=== PATIENT | male | born 1980 | race Caucasian/White ===

== ENCOUNTER 2016-08-05 20:15 | Emergency (ER) | payer OTHER, SELFPAY ==
[2016-08-05 20:31] VITALS: O2SAT 98
[2016-08-05] MEDS ORDERED: Robitussin AC Syrup Unit Dose Cup PO PRN (21:02)
[2016-08-05] MEDS ORDERED: Zithromax 250 MG TABLET PO ONE (21:02)
[2016-08-05] MEDS ORDERED: Naprosyn 500 MG PO ONE (21:02)
[2016-08-05] MEDS ORDERED: Zithromax 250 MG TABLET ONE (21:06)
[2016-08-05] MEDS ORDERED: Robitussin AC Syrup Unit Dose Cup ONE (21:06)
--- NOTE | 2016-08-05 21:08 | ERPHSYRPT ---
- History of Present Illness Time Seen by Provider: 08/05/16 20:57 Source: patient Exam Limitations: no limitations Patient Subjective Stated Complaint: pt states hes had a cold for approx 3 weeks and has gotten much worse over the past few days Triage Nursing Assessment: pt alert and oreinted. answers questions approp. skin pink warm and dry. pt ambulatory with steady gait noted. respirations nonlabored with lung clear on lt and rhonchi noted on rt. occasional cough noted. Physician History: FOR THE PAST 3 WEEKS PT HAS HAD A COUGH SOMETIMES PRODUCTIVE OF GREEN PHLEGM, SHORTNESS OF AIR AND HEAD CONGESTION; DENIES FEVER, CHEST PAIN, VOMITING. Allergies/Adverse Reactions: No Known Drug Allergies Allergy (Verified 08/05/16 20:31) Hx Tetanus, Diphtheria Vaccination/Date Given: Yes Hx Influenza Vaccination/Date Given: No Hx Pneumococcal Vaccination/Date Given: No Immunizations Up to Date: Yes - Review of Systems Constitutional: No Fever Ears, Nose, & Throat: Other (HEAD CONGESTION) Respiratory: Cough, Dyspnea Cardiac: No Chest Pain Abdominal/Gastrointestinal: No Vomiting All Other Systems: Reviewed and Negative - Past Medical History Pertinent Past Medical History: Yes Respiratory History: Bronchitis - Past Surgical History Past Surgical History: No - Social History Smoking Status: Current every day smoker How long have you smoked: 20 Exposure to second hand smoke: Yes Drug Use: none Patient Lives Alone: No - Nursing Vital Signs Nursing Vital Signs: Initial Vital Signs Temperature 97.5 F Temperature Source Oral Pulse Rate 83 Respiratory Rate 16 Blood Pressure [Right Arm] 134/78 Pain Intensity 7 - Physical Exam General Appearance: alert Eye Exam: PERRL/EOMI, eyes nml inspection Ears, Nose, Throat Exam: TMs normal, moist mucous membranes, pharyngeal erythema Neck Exam: normal inspection Respiratory Exam: other (BRONCHIAL B.S. OVER ALL FELDMAN) Cardiovascular Exam: normal heart sounds Gastrointestinal/Abdomen Exam: soft, normal bowel sounds Back Exam: normal range of motion Extremity Exam: normal inspection, No pedal edema Neurologic Exam: alert, cooperative Skin Exam: warm, dry SpO2 Interpretation: normal SpO2: 98 Oxygen Delivery: Room Air - Course Nursing assessment & vital signs reviewed: Yes - Departure Time of Disposition: 21:09 Departure Disposition: Home Clinical Impression: BRONCHITIS, PHARYNGITIS Condition: Fair Critical Care Time: No Instructions: Bronchitis Additional Instructions: FOLLOW UP WITH PRIVATE DOCTOR TOMORROW. Prescriptions: Guaifenesin/Codeine Phosphate [Robitussin AC Syrup] 10 ml PO Q4H PRN PRN #120 ml PRN Reason: Cough Naproxen [Naprosyn] 500 mg PO Q12H PRN PRN #20 tablet PRN Reason: Pain Azithromycin 250 mg [Zithromax 250 MG TABLET] 250 mg PO ZPACK #6 tablet
[2016-08-05 21:25] VITALS: BP 123/70; PULSE 76
== END 2016-08-05 21:25 | disposition home or self-care (01) ==
LOC: ED 20:15
DX: J40 Bronchitis, not specified as acute or chronic (principal); J02.9 Acute pharyngitis, unspecified; R05 Cough; R09.81 Nasal congestion
CPT/HCPCS: 99283

== ENCOUNTER 2018-09-02 01:17 | Emergency (ER) | payer OTHER, SELFPAY ==
--- NOTE | 2018-09-02 01:42 | ERPHSYRPT ---
- History of Present Illness Time Seen by Provider: 09/02/18 01:42 Source: patient Exam Limitations: no limitations Patient Subjective Stated Complaint: pt states he has had a cough and body aches for 3 day. Triage Nursing Assessment: pt alert and oriented, answers questions approp. pt ambulatory with steady gait noted. respirations nonlabored with exp wheezes noted throughout. skin warm and dry. Physician History: The patient is a 38-year-old male who lives with a couple in his house. The patient began to get a cough and severe muscle aches and a spine ache about 2-3 days ago. He did not get an influenza vaccination this year. His friend is also ill and he did not get an influenza vaccination this year. The woman who is with him is not ill and she did get an influenza vaccination. This patient vomited a the first day but has not vomited since. He says this is worse in the bronchitis he usually gets. He declines a chest x-ray and would like treatment for influenza. His past medical history is unremarkable. Timing/Duration: day(s) (2), constant, sudden Cough Quality/Degree: moderate, dry cough Possible Cause: no prior episodes Modifying Factors: Improves With: coughing Associated Symptoms: fever, cough, muscle aches Allergies/Adverse Reactions: No Known Drug Allergies Allergy (Verified 09/02/18 01:35) Hx Tetanus, Diphtheria Vaccination/Date Given: Yes Hx Influenza Vaccination/Date Given: No Hx Pneumococcal Vaccination/Date Given: No Immunizations Up to Date: Yes - Review of Systems Constitutional: Chills Eyes: No Symptoms Ears, Nose, & Throat: No Symptoms Respiratory: Cough Cardiac: No Chest Pain, No Edema, No Syncope Abdominal/Gastrointestinal: Vomiting Genitourinary Symptoms: No Dysuria Musculoskeletal: No Back Pain, No Neck Pain Skin: No Rash Neurological: No Dizziness, No Focal Weakness, No Sensory Changes Psychological: No Symptoms Endocrine: No Symptoms Hematologic/Lymphatic: No Symptoms Immunological/Allergic: No Symptoms All Other Systems: Reviewed and Negative - Past Medical History Pertinent Past Medical History: Yes Respiratory History: Bronchitis Psycho-Social History: Depression - Past Surgical History Past Surgical History: No - Social History Smoking Status: Current every day smoker How long have you smoked: 20 Exposure to second hand smoke: Yes Drug Use: none Patient Lives Alone: No - Nursing Vital Signs Nursing Vital Signs: Initial Vital Signs Temperature 99.2 F 09/02/18 01:24 Pulse Rate 91 H 09/02/18 01:24 Respiratory Rate 18 09/02/18 01:24 Blood Pressure 129/81 09/02/18 01:24 O2 Sat by Pulse Oximetry 99 09/02/18 01:24 Pain Scale Pain Intensity 6 - Physical Exam General Appearance: moderate distress Eye Exam: PERRL/EOMI, eyes nml inspection Ears, Nose, Throat Exam: normal ENT inspection, TMs normal, moist mucous membranes, pharyngeal erythema Neck Exam: normal inspection, non-tender, supple, full range of motion Respiratory Exam: normal breath sounds, lungs clear, No respiratory distress Cardiovascular Exam: regular rate/rhythm, normal heart sounds Gastrointestinal/Abdomen Exam: soft, No tenderness Rectal Exam: not done Back Exam: normal inspection, No CVA tenderness, No vertebral tenderness Extremity Exam: normal inspection, normal range of motion Neurologic Exam: alert, oriented x 3, cooperative, normal mood/affect, sensation nml, No motor deficits Skin Exam: normal color, warm, dry, No rash Lymphatic Exam: No adenopathy SpO2 Interpretation: normal SpO2: 100 O2 Delivery: Room Air - Progress Progress: improved Progress Note: 09/02/18 01:56 Pt declines CXR. Given toradol 60 mg IM and tamiflu 75 mg po. Counseled pt/family regarding: diagnosis - Departure Time of Disposition: 01:57 Departure Disposition: Home Clinical Impression: Influenza Condition: Stable Critical Care Time: No Referrals: DOCTOR,NO FAMILY [Primary Care Provider] - Additional Instructions: Clinically you have an influenza infection. You were given Toradol 60 mg by IM and Tamiflu 75 mg orally in the ER. Continue with Tamiflu 75 mg 2 times a day for total of 5 days. Take Tylenol and ibuprofen as needed. Stay well- hydrated. Follow-up with your primary medical doctor as needed. Prescriptions: Oseltamivir 75 mg [Tamiflu 75MG Capsule] 75 mg PO BID #9 cap
[2018-09-02] MEDS ORDERED: Tamiflu 75MG Capsule PO ONE ×2 (01:57→02:08)
[2018-09-02] MEDS ORDERED: TORAdol 30 mg Injection IM ONE (01:57)
[2018-09-02] MEDS ORDERED: TORAdol 30 mg Injection ONE (02:08)
[2018-09-02 02:21] VITALS: BP 109/75; PULSE 84; O2SAT 98
== END 2018-09-02 02:28 | disposition home or self-care (01) ==
LOC: ED 01:17
DX: J10.1 Influenza due to other identified influenza virus with other respiratory manifestations (principal)
CPT/HCPCS: 96372; 99283; J1885; A9270-GY

== ENCOUNTER 2020-06-28 16:19 | Emergency (ER) | payer OTHER ==
[2020-06-28 16:32] VITALS: BP 142/86; PULSE 81; O2SAT 100
--- NOTE | 2020-06-28 16:49 | ERPHSYRPT ---
- History of Present Illness Time Seen by Provider: 06/28/20 16:49 Source: patient Exam Limitations: no limitations Patient Subjective Stated Complaint: infection in tooth Triage Nursing Assessment: pt to ED c/o toothache and possible infection. L cheek and gums swollen. teeth appear unhealthy with decay noted. missing teeth in L back lower. states that is where pain originates. sees [facility] in [place] and was supposed to have a tooth pulled and another repaired 6 months ago but has not been able to be seen d/t clinic not seeing pts r/t COVID. rates 10/10 pain x 3 days. unable to tolerate solid foods Physician History: This is a 40-year-old white male who has chronic poor dentition and dental decay who presents with left lower molar pain. Is been present for several days and worsening. Patient has been unable to care for his teeth in the free clinic in [facility] secondary to Covid 19 restrictions. Patient denies any drug allergies. Patient states that the last medicine he used for pain control was 6 or 7 hours ago which was plain Tylenol. Timing/Duration: gradual onset, persistent, weeks (Chronic) Severity: moderate Prearrival Treatment: over the counter meds Associated Symptoms: tooth pain Allergies/Adverse Reactions: No Known Drug Allergies Allergy (Verified 06/28/20 16:32) Hx Tetanus, Diphtheria Vaccination/Date Given: Yes Hx Influenza Vaccination/Date Given: Yes Hx Pneumococcal Vaccination/Date Given: No Immunizations Up to Date: Yes Travel Risk - International Travel Have you traveled outside of the country in past 3 weeks: No - Coronavirus Screening Are you exhibiting any of the following symptoms?: No Close contact with a COVID-19 positive Pt in past 14-21 Days: No - Review of Systems Constitutional: No Symptoms Eyes: No Symptoms Ears, Nose, & Throat: No Symptoms, Other (Pain) Respiratory: No Symptoms Cardiac: No Symptoms Abdominal/Gastrointestinal: No Symptoms Genitourinary Symptoms: No Symptoms Musculoskeletal: No Symptoms Skin: No Symptoms Neurological: No Symptoms Psychological: No Symptoms Endocrine: No Symptoms Hematologic/Lymphatic: No Symptoms Immunological/Allergic: No Symptoms All Other Systems: Reviewed and Negative - Past Medical History Pertinent Past Medical History: Yes Neurological History: No Pertinent History ENT History: No Pertinent History Cardiac History: No Pertinent History Respiratory History: Bronchitis Endocrine Medical History: No Pertinent History Musculoskeletal History: No Pertinent History GI Medical History: No Pertinent History History: No Pertinent History Psycho-Social History: Depression - Past Surgical History Past Surgical History: No Neuro Surgical History: No Pertinent History Cardiac: No Pertinent History Respiratory: No Pertinent History Gastrointestinal: No Pertinent History Genitourinary: No Pertinent History Musculoskeletal: No Pertinent History Male Surgical History: No Pertinent History - Social History Smoking Status: Current every day smoker How long have you smoked: 20 Exposure to second hand smoke: Yes Drug Use: marijuana Patient Lives Alone: No - Nursing Vital Signs Nursing Vital Signs: Initial Vital Signs Temperature 98.1 F 06/28/20 16:22 Pulse Rate 81 06/28/20 16:22 Respiratory Rate 18 06/28/20 16:22 Blood Pressure 142/86 06/28/20 16:22 O2 Sat by Pulse Oximetry 100 06/28/20 16:22 Pain Scale Pain Intensity 10 - Physical Exam General Appearance: no apparent distress, alert, anxiety Eye Exam: bilateral eye: normal inspection, PERRL, EOMI Ear Exam: bilateral ear: auricle normal Nasal Exam: normal inspection Throat Exam: pharynx normal, dental tenderness (Underlies poor dentition with gingivitis and multiple fractured teeth.) Neck Exam: normal inspection, non-tender, supple, full range of motion Cardiovascular/Respiratory Exam: chest non-tender, no respiratory distress Abdominal Exam: non-tender Neurologic Exam: alert, oriented x 3, cooperative, 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, normal mood/affect, nml cerebellar function, nml station & gait, sensation nml Skin Exam: normal color, warm, dry SpO2 Interpretation: normal SpO2: 100 O2 Delivery: Room Air - Course Nursing assessment & vital signs reviewed: Yes Ordered Tests: Medication Summary Discontinued Medications Generic Name Dose Route Start Last Admin Trade Name Freq PRN Reason Stop Dose Admin Amoxicillin 500 mg 06/28/20 17:34 Amoxil 500 Mg PO 06/28/20 17:35 STAT ONE Ibuprofen 600 mg 06/28/20 17:34 Motrin 600 Mg PO 06/28/20 17:35 STAT ONE Oxycodone/Acetaminophen 1 tab 06/28/20 17:34 Oxycodone-Acetaminophen 10-325 PO 06/28/20 17:35 STAT STA - Progress Progress: unchanged Counseled pt/family regarding: diagnosis, need for follow-up - Departure Departure Disposition: Home Clinical Impression: Chronic dental pain Condition: Stable Critical Care Time: No Referrals: DOCTOR,NO FAMILY [Primary Care Provider] - Additional Instructions: Use Tylenol and ibuprofen for pain control. Take your antibiotics as prescribed. Follow-up with a dentist for definitive care. May add [id number] topical anesthetic agents to aid in pain control. Prescriptions: Amoxicillin 500 mg Cap [Amoxil 500 mg] 500 mg PO TID #30 capsule
[2020-06-28] MEDS ORDERED: AMOXIL 500 MG PO ONE (17:34)
[2020-06-28] MEDS ORDERED: OXYCODONE-ACETAMINOPHEN 10-325 PO STA (17:34)
[2020-06-28] MEDS ORDERED: MOTRIN 600 MG PO ONE (17:34)
[2020-06-28] MEDS ORDERED: MOTRIN 600 MG ONE (17:48)
[2020-06-28] MEDS ORDERED: AMOXIL 500 MG ONE (17:49)
[2020-06-28] MEDS ORDERED: OXYCODONE-ACETAMINOPHEN 10-325 ONE (17:49)
== END 2020-06-28 18:11 | disposition home or self-care (01) ==
LOC: ED 16:19
DX: K08.89 Other specified disorders of teeth and supporting structures (principal)
CPT/HCPCS: 99283; A9270-GY

== ENCOUNTER 2021-05-22 05:45 | Emergency (ER) | payer OTHER ==
[2021-05-22] MEDS ORDERED: Sodium Chloride 0.9% 1000 ML 1,000 ML IV STA ×2 (06:20→09:11)
[2021-05-22] MEDS ORDERED: Zofran 4 MG/2 ML VIAL IV PRN (06:20)
[2021-05-22] MEDS ORDERED: Sodium Chloride 0.9% 1000 ML 1,000 ML ONE ×2 (06:22→09:03)
[2021-05-22] MEDS ORDERED: Zofran 4 MG/2 ML VIAL ONE (06:22)
[2021-05-22 06:44] LABS: Absolute Neutrophil Ct (ANC) 7.49 (1.4-6.9); BASOPHIL % 0.4 % (0.0-0.4); Basophil (Absolute #) 0.04 (0-0.4); Eosinophil % 0.1 % (0.00-5.0); Eosinophil (Absolute #) 0.01 (0-0.5); Hematocrit 44.9 % (42-50); Hemoglobin 14.9 gm/dl (12.5-18.0); Lymphocyte (Absolute #) 1.77 (1.0-4.6); Lymphocytes % 17.3 % (24.0-44.0); Mean Cell Volume 90.7 fl (78-100); Mean Corpuscular Hemoglobin 30.1 pg (26-32); Mean Corpuscular Hgb Concent. 33.2 g/dl (32-36); Mean Platelet Volume 10.2 fl (7.5-11.0); Monocyte (Absolute #) 0.94 (0.0-1.3); Monocytes % 9.2 % (0.0-12.0); Platelet Count 330 K/mm3 (150-450); Red Blood Count 4.95 M/mm3 (4.1-5.6); Red Cell Distribution Width 14.4 % (11.5-14.0); White Blood Count 10.3 K/mm3 (4.0-10.5)
[2021-05-22 06:54] LABS: ALBUMIN 4.9 g/dL (3.5-5.0); ALKALINE PHOSPHATASE 40 U/L (38-126); ANION GAP 18.3 MEQ/L (5-15); BLOOD UREA NITROGEN 14 mg/dL (9-20); CHLORIDE 107 mmol/L (98-107); Calcium 9.9 mg/dL (8.4-10.2); Carbon Dioxide 23 mmol/L (22-30); Creatinine 1 1.14 mg/dL (0.66-1.25); EST GLOMERULAR FILTRATION RATE > 60.0 ML/MIN; Glucose 99 mg/dL (74-106); LIPASE 78 U/L (23-300); Potassium 4.1 mmol/L (3.5-5.1); SGOT/AST 24 U/L (17-59); SGPT/ALT 20 U/L (0-50); SODIUM 143 mmol/L (137-145); Total Protein 7.8 g/dL (6.3-8.2)
[2021-05-22] MEDS ORDERED: PROTONIX 40 MG IV IV ONE ×2 (06:55→06:58)
[2021-05-22 06:56] LABS: Appearance CLEAR (CLEAR); Bilirubin NEGATIVE (NEGATIVE); Blood NEGATIVE Ery/ul (0-5); Glucose NEGATIVE (NEGATIVE); Ketones NEGATIVE (NEGATIVE); Leukocyte Esterase NEGATIVE (NEGATIVE); Mucus SLIGHT /HPF (NEGATIVE); Nitrite NEGATIVE (NEGATIVE); Protein,Urine Dip NEGATIVE (Negative); Specific Gravity 1.014 (1.005-1.025); Urobilinogen NEGATIVE mg/dL (0-1); WBC 0-2 /HPF (0-5)
--- NOTE | 2021-05-22 07:01 | ERPHSYRPT ---
- History of Present Illness Historian: patient Exam Limitations: no limitations Patient Subjective Stated Complaint: pt states "I vomited like 8 times tonight but I thought it may be from the deer I ate." Triage Nursing Assessment: pt ambulated into the er; pt is axo x4; c/o vomiting; pt states 2/10 pain to abd; pt states that he had some deer meat last night and thinks it was bad; pt states that he had 10 episodes of vomiting; pt states that he had 1 episode of diarrhea yesterday prior to vomiting; pt states pain in abd is sharp but has subsided; abd is flat, nontender; hyperactive bowel sounds in all quads; pt states he is passing gas; tachycardia; hypertensive Timing/Duration: hour(s) (5), gradual onset, improved Activities at Onset: sleep Quality: burning Abdominal Pain Onset Location: epigastric Pain Radiation: chest Severity of Pain-Max: moderate Severity of Pain-Current: mild Modifying Factors: Worsens With: vomiting Associated Symptoms: diarrhea, nausea, vomiting Previous symptoms: no prior history Hx Tetanus, Diphtheria Vaccination/Date Given: Yes Hx Influenza Vaccination/Date Given: No Hx Pneumococcal Vaccination/Date Given: No <BONITA GOMEZ - Last Filed: 05/22/21 07:01> <CHRIS ABDULLAHI - Last Filed: 05/22/21 09:55> - History of Present Illness Time Seen by Provider: 05/22/21 06:35 Physician History: 41 years old male presented in the ER with chief complaint of multiple episodes of nonprojectile, nonbilious vomiting since 1 AM waking him up from sleep. He is also complaining of dull aching burning pain in the epigastric area which is much improved now. Patient denies any abdominal pain during my evaluation. Patient also reports having loose stools last evening. No fever or chills reported. Reports having deer meat which probably is the cause of his gastroenteritis. Currently minimal nausea her last vomiting was almost an hour ago. No fever or chills reported. Denies any sick contact. (BONITA GOMEZ) Allergies/Adverse Reactions: No Known Drug Allergies Allergy (Verified 05/22/21 05:53) Travel Risk - International Travel Have you traveled outside of the country in past 3 weeks: No (N) If Yes, where;: N - Coronavirus Screening Close contact with a COVID-19 positive Pt in past 14-21 Days: No - Vaccine Status Have you recieved a Covid-19 vaccination: No <BONITA GOMEZ Last Filed: 05/22/21 07:01> - Review of Systems Constitutional: Fatigue, Weakness Eyes: No Symptoms Ears, Nose, & Throat: No Symptoms Respiratory: No Symptoms Cardiac: No Symptoms Abdominal/Gastrointestinal: Nausea, Vomiting Genitourinary Symptoms: No Symptoms Musculoskeletal: No Symptoms Skin: No Symptoms Neurological: No Symptoms Psychological: No Symptoms Endocrine: No Symptoms Hematologic/Lymphatic: No Symptoms Immunological/Allergic: No Symptoms <BONITA GOMEZ Last Filed: 05/22/21 07:01> - Past Medical History Pertinent Past Medical History: Yes Neurological History: No Pertinent History ENT History: No Pertinent History Cardiac History: No Pertinent History Respiratory History: Bronchitis Endocrine Medical History: No Pertinent History Musculoskeletal History: No Pertinent History GI Medical History: No Pertinent History History: No Pertinent History Psycho-Social History: Bipolar, Depression, Other Male Reproductive Disorders: No Pertinent History Other Medical History: schizophrenia - Past Surgical History Past Surgical History: No Neuro Surgical History: No Pertinent History Cardiac: No Pertinent History Respiratory: No Pertinent History Gastrointestinal: No Pertinent History Genitourinary: No Pertinent History Musculoskeletal: No Pertinent History Male Surgical History: No Pertinent History - Social History Smoking Status: Current every day smoker How long have you smoked: 20 Exposure to second hand smoke: Yes Drug Use: marijuana Patient Lives Alone: No <BONITA GOMEZ Last Filed: 05/22/21 07:01> - Physical Exam General Appearance: no apparent distress, alert, anxiety Eye Exam: PERRL/EOMI, eyes nml inspection Ears, Nose, Throat Exam: normal ENT inspection, TMs normal, pharynx normal Neck Exam: normal inspection, non-tender, supple, full range of motion Respiratory Exam: normal breath sounds, lungs clear Cardiovascular Exam: normal heart sounds, tachycardia Gastrointestinal/Abdomen Exam: soft, normal bowel sounds, No tenderness Back Exam: normal inspection, normal range of motion Extremity Exam: normal inspection, normal range of motion, pelvis stable Neurologic Exam: alert, oriented x 3, cooperative Skin Exam: normal color, warm SpO2 Interpretation: normal SpO2: 97 O2 Delivery: Room Air <BONITA GOMEZ Last Filed: 05/22/21 07:01> - Nursing Vital Signs Nursing Vital Signs: Initial Vital Signs Temperature 98.2 F 05/22/21 05:56 Pulse Rate 137 H 05/22/21 05:56 Respiratory Rate 18 05/22/21 05:56 Blood Pressure 161/104 05/22/21 05:56 O2 Sat by Pulse Oximetry 96 05/22/21 05:56 Pain Scale Pain Intensity 0 - Course Nursing assessment & vital signs reviewed: Yes EKG Interpreted by Me: RATE (98), Sinus Rhythm, NORMAL AXIS, NORMAL INTERVALS - Radiology Exams Chest X-ray Interpretation: Teleradiologist Report (Portable chest demonstrates normal heart lungs and bony thorax with incidental right base calcified granuloma) <CHRIS ABDULLAHI - Last Filed: 05/22/21 09:55> Ordered Tests: Active Orders 24 hr Category Date Time Status EKG-ER Only STAT Care 05/22/21 09:02 Active CHEST 1 VIEW (PORTABLE) Stat Exams 05/22/21 09:02 Completed CBC W DIFF Stat Lab 05/22/21 06:00 Completed CMP Stat Lab 05/22/21 06:00 Completed D-DIMER QUANTITATIVE Stat Lab 05/22/21 08:09 Completed LIPASE Stat Lab 05/22/21 06:00 Completed TROPONIN Q3H Lab 05/22/21 09:15 Completed TROPONIN Q3H Lab 05/22/21 12:15 Ordered TROPONIN Q3H Lab 05/22/21 15:15 Ordered TROPONIN Q3H Lab 05/22/21 18:15 Ordered TROPONIN Q3H Lab 05/22/21 21:15 Ordered UA W/RFX UR CULTURE Stat Lab 05/22/21 06:21 Completed Urine Triage Profile Stat Lab 05/22/21 08:14 Completed Medication Summary Generic Name Dose Route Start Last Admin Trade Name Freq PRN Reason Stop Dose Admin Sodium Chloride 1,000 mls @ 999 mls/hr 05/22/21 09:11 05/22/21 09:13 Sodium Chloride 0.9% 1000 Ml IV 05/22/21 10:11 999 mls/hr .Q1H1M STA Administration Ondansetron HCl 4 mg 05/22/21 06:20 05/22/21 06:24 Ondansetron Hcl 4 Mg/2 Ml Vial IV 06/21/21 06:19 4 mg Q6H PRN PRN Administration NAUSEA/VOMITING Discontinued Medications Generic Name Dose Route Start Last Admin Trade Name Maggie PRN Reason Stop Dose Admin Sodium Chloride 1,000 mls @ 999 mls/hr 05/22/21 06:20 05/22/21 07:41 Sodium Chloride 0.9% 1000 Ml IV 05/22/21 07:20 Infused .Q1H1M STA Infusion Sodium Chloride Confirm 05/22/21 06:22 Sodium Chloride 0.9% 1000 Ml Administered 05/22/21 06:23 Dose 1,000 mls @ ud .ROUTE .STK-MED ONE Sodium Chloride Confirm 05/22/21 09:03 Sodium Chloride 0.9% 1000 Ml Administered 05/22/21 09:04 Dose 1,000 mls @ ud .ROUTE .STK-MED ONE Pantoprazole Sodium 40 mg 05/22/21 06:55 05/22/21 07:00 Pantoprazole 40 Mg Vial IV 05/22/21 06:56 40 mg STAT ONE Administration Pantoprazole Sodium Confirm 05/22/21 06:58 Pantoprazole 40 Mg Vial Administered 05/22/21 06:59 Dose 40 mg IV .STK-MED ONE Lab/Rad Data: Laboratory Result Diagrams 05/22/21 06:00 05/22/21 06:00 Laboratory Results 05/22/21 05/22/21 05/22/21 Range/Units 09:15 08:14 08:09 WBC (4.0-10.5) K/mm3 RBC (4.1-5.6) M/mm3 Hgb (12.5-18.0) gm/dl Hct (42-50) % MCV (78-100) fl MCH (26-32) pg MCHC (32-36) g/dl RDW (11.5-14.0) % Plt Count (150-450) K/mm3 MPV (7.5-11.0) fl Gran % (36.0-66.0) % Eos # (Auto) (0-0.5) Absolute Lymphs (auto) (1.0-4.6) Absolute Monos (auto) (0.0-1.3) Lymphocytes % (24.0-44.0) % Monocytes % (0.0-12.0) % Eosinophils % (0.00-5.0) % Basophils % (0.0-0.4) % Absolute Granulocytes (1.4-6.9) Basophils # (0-0.4) D-Dimer 324 (215-500) ng/mL Sodium (137-145) mmol/L Potassium (3.5-5.1) mmol/L Chloride (98-107) mmol/L Carbon Dioxide (22-30) mmol/L Anion Gap (5-15) MEQ/L BUN (9-20) mg/dL Creatinine (0.66-1.25) mg/dL Estimated GFR ML/MIN Glucose (74-106) mg/dL Calcium (8.4-10.2) mg/dL Total Bilirubin (0.2-1.3) mg/dL AST (17-59) U/L ALT (0-50) U/L Alkaline Phosphatase (38-126) U/L Troponin I < 0.012 (0.000-0.034) ng/mL Serum Total Protein (6.3-8.2) g/dL Albumin (3.5-5.0) g/dL Lipase (23-300) U/L Urine Color (YELLOW) Urine Appearance (CLEAR) Urine pH (5-6) Ur Specific [place] (1.005-1.025) Urine Protein (Negative) Urine Ketones (NEGATIVE) Urine Blood (0-5) Kaz/ul Urine Nitrite (NEGATIVE) Urine Bilirubin (NEGATIVE) Urine Urobilinogen (0-1) mg/dL Ur Leukocyte Esterase (NEGATIVE) Urine WBC (Auto) (0-5) /HPF Urine RBC (Auto) (0-2) /HPF U Hyaline Cast (Auto) (0-2) /LPF U Epithel Cells (Auto) (FEW) /HPF Urine Bacteria (Auto) (NEGATIVE) /HPF Urine Mucus (Auto) (NEGATIVE) /HPF Urine Culture Reflexed (NO) Urine Glucose (NEGATIVE) mg/dL Urine Opiates Level NEGATIVE (NEGATIVE) Ur Methadone NEGATIVE (NEGATIVE) Urine Barbiturates NEGATIVE (NEGATIVE) Ur Phencyclidine (PCP) NEGATIVE (NEGATIVE) Urine Amphetamine POSITIVE (NEGATIVE) U Benzodiazepine Level NEGATIVE (NEGATIVE) Urine Cocaine NEGATIVE (NEGATIVE) Urine Marijuana (THC) POSITIVE (NEGATIVE) 05/22/21 05/22/21 05/22/21 Range/Units 06:21 06:00 06:00 WBC 10.3 (4.0-10.5) K/mm3 RBC 4.95 (4.1-5.6) M/mm3 Hgb 14.9 (12.5-18.0) gm/dl Hct 44.9 (42-50) % MCV 90.7 (78-100) fl MCH 30.1 (26-32) pg MCHC 33.2 (32-36) g/dl RDW 14.4 H (11.5-14.0) % Plt Count 330 (150-450) K/mm3 MPV 10.2 (7.5-11.0) fl Gran % 73.0 H (36.0-66.0) % Eos # (Auto) 0.01 (0-0.5) Absolute Lymphs (auto) 1.77 (1.0-4.6) Absolute Monos (auto) 0.94 (0.0-1.3) Lymphocytes % 17.3 L (24.0-44.0) % Monocytes % 9.2 (0.0-12.0) % Eosinophils % 0.1 (0.00-5.0) % Basophils % 0.4 (0.0-0.4) % Absolute Granulocytes 7.49 H (1.4-6.9) Basophils # 0.04 (0-0.4) D-Dimer (215-500) ng/mL Sodium 143 (137-145) mmol/L Potassium 4.1 (3.5-5.1) mmol/L Chloride 107 (98-107) mmol/L Carbon Dioxide 23 (22-30) mmol/L Anion Gap 18.3 H (5-15) MEQ/L BUN 14 (9-20) mg/dL Creatinine 1.14 (0.66-1.25) mg/dL Estimated GFR > 60.0 ML/MIN Glucose 99 (74-106) mg/dL Calcium 9.9 (8.4-10.2) mg/dL Total Bilirubin 0.50 (0.2-1.3) mg/dL AST 24 (17-59) U/L ALT 20 (0-50) U/L Alkaline Phosphatase 40 (38-126) U/L Troponin I (0.000-0.034) ng/mL Serum Total Protein 7.8 (6.3-8.2) g/dL Albumin 4.9 (3.5-5.0) g/dL Lipase 78 (23-300) U/L Urine Color YELLOW (YELLOW) Urine Appearance CLEAR (CLEAR) Urine pH 5.0 (5-6) Ur Specific [place] 1.014 (1.005-1.025) Urine Protein NEGATIVE (Negative) Urine Ketones NEGATIVE (NEGATIVE) Urine Blood NEGATIVE (0-5) Kaz/ul Urine Nitrite NEGATIVE (NEGATIVE) Urine Bilirubin NEGATIVE (NEGATIVE) Urine Urobilinogen NEGATIVE (0-1) mg/dL Ur Leukocyte Esterase NEGATIVE (NEGATIVE) Urine WBC (Auto) 0-2 (0-5) /HPF Urine RBC (Auto) NONE (0-2) /HPF U Hyaline Cast (Auto) 3-5 (0-2) /LPF U Epithel Cells (Auto) NONE (FEW) /HPF Urine Bacteria (Auto) NONE (NEGATIVE) /HPF Urine Mucus (Auto) SLIGHT (NEGATIVE) /HPF Urine Culture Reflexed NO (NO) Urine Glucose NEGATIVE (NEGATIVE) mg/dL Urine Opiates Level (NEGATIVE) Ur Methadone (NEGATIVE) Urine Barbiturates (NEGATIVE) Ur Phencyclidine (PCP) (NEGATIVE) Urine Amphetamine (NEGATIVE) U Benzodiazepine Level (NEGATIVE) Urine Cocaine (NEGATIVE) Urine Marijuana (THC) (NEGATIVE) - Progress Progress: improved <BONITA GOMEZ - Last Filed: 05/22/21 07:01> - Progress Counseled pt/family regarding: lab results, diagnosis, need for follow-up, rad results <CHRIS ABDULLAHI - Last Filed: 05/22/21 09:55> - Progress Progress Note: 05/22/21 07:01 Does not have any abdominal pain, exam is soft nontender with no peritoneal signs. Given fluids and Zofran along with Protonix. Do not think he needs any imaging and seems like he has it probably gastroenteritis. Work-up is pending, care is transferred to Dr. Abdullahi at shift change for final disposition. (BONITA GOMEZ) Patient endorsed to Dr. Abdullahi at approximately 7 AM. Patient arrived to our ED with complaints of nausea vomiting and loose stools. Patient did not have abdominal pain. Dr. Abdullahi advised to follow-up on pending labs and to treat and assess patient's resting tachycardia. Toxicology screen reveals patient is positive for amphetamine. Troponin was negative. D-dimer was negative. Chest x-ray was nonremarkable for acute pathology. Patient received IV fluids. Tac hycardia significantly improved to a rate of 98. Patient did receive a dose of Protonix and Zofran in our ED. This appeared to help. We will discharge patient home at this time. A prescription for Protonix and Zofran was forwarded to patient's pharmacy. Patient feels well. He voices no other complaints at this time. Patient requesting discharge. Will discharge patient at this time. Portions of this note were created with voice recognition technology. There may be grammatical, spelling, punctuation or sound alike errors 05/22/21 09:52 Patient does not have a primary care doctor on record. Patient is referred to our on-call, Dr. Reza. 05/22/21 09:54 (CHRIS ABDULLAHI) <BONITA GOMEZ - Last Filed: 05/22/21 07:01> - Departure Departure Disposition: Home Critical Care Time: No <CHRIS ABDULLAHI - Last Filed: 05/22/21 09:55> - Departure Clinical Impression: Tachycardia, Marijuana use, Amphetamine use, Lung granuloma, Nausea and vomiting, Diarrhea, Gastroenteritis Condition: Stable Referrals: YVONNE WEIR DO [ACTIVE STAFF] - Follow up/PCP as directed Additional Instructions: Discharge/Care Plan RANDALL VINES was seen on 05/22/21 in the Emergency Room. The patient was counseled regarding Diagnosis,Lab results, Imaging studies, need for follow up and when to return to the Emergency Room. Prescriptions given: Discharge Note I have spoken with the patient and/or caregivers. I have explained the patient's condition, diagnosis and treatment plan based on the information available to me at this time. I have answered the patient's and/or caregiver's questions and addressed any concerns. The patient and/or caregivers have as good understanding of the patient's diagnosis, condition and treatment plan as can be expected at this point. The vital signs have been stable. The patient's condition is stable and appropriate for discharge from the emergency department. The patient will pursue further outpatient evaluation with the primary care physician or other designated or consulting physician as outlined in the discharge instructions. The patient and/or caregivers are agreeable to this plan of care and follow-up instructions have been explained in detail. The patient and/or caregivers have received these instruction. The patient/and or caregivers are aware that any significant change in condition or worsening of symptoms should prompt an immediate return to this or the closest emergency department or call 911. Prescriptions: Ondansetron ODT 4 MG [Zofran Odt 4 mg] 4 mg PO Q6H PRN PRN #10 tablet PRN Reason: Vomiting PANTOPRAZOLE 40 mg Tablet [Protonix 40MG Tablet] 40 mg PO QAM 7 Days #14 tab
[2021-05-22 08:41] LABS: Amphetamine,Urine POSITIVE (NEGATIVE); Barbiturate,Urine NEGATIVE (NEGATIVE); Benzodiazepine,Urine NEGATIVE (NEGATIVE); Cocaine,Urine NEGATIVE (NEGATIVE); Methadone,Urine NEGATIVE (NEGATIVE); Opiate,Urine NEGATIVE (NEGATIVE); PCP,Urine NEGATIVE (NEGATIVE); THC,Urine POSITIVE (NEGATIVE)
--- NOTE | 2021-05-22 09:35 | XRAY ---
Indication: Tachycardia and vomiting. Comparison: October 26, 2015. Portable chest demonstrates normal heart, lungs, and bony thorax with incidental right base calcified granuloma.
== END 2021-05-22 10:03 | disposition home or self-care (01) ==
LOC: ED 05:45
DX: K52.9 Noninfective gastroenteritis and colitis, unspecified (principal); R11.2 Nausea with vomiting, unspecified; R00.0 Tachycardia, unspecified; J84.10 Pulmonary fibrosis, unspecified; F12.90 Cannabis use, unspecified, uncomplicated; F15.90 Other stimulant use, unspecified, uncomplicated; Z72.0 Tobacco use
CPT/HCPCS: 36415; 71045; 80053; 80307; 81001; 83690; 84484; 85025; 85379; 93005; 96360; 96374; 99284; J2405